=== PATIENT | female | born 1960 | race Caucasian/White ===

== ENCOUNTER 2018-04-11 07:31 | Outpatient (CLI) | payer OTHER ==
--- NOTE | 2018-04-11 14:45 | ULT ---
ULTRASOUND ABDOMEN: Date: 04/11/18 HISTORY: Elevated LFTs. COMPARISON: None. TECHNIQUE: Real-time Saavedra scale with color Doppler and spectral analysis of the abdomen performed. FINDINGS: Visualized portions of the pancreas, aorta, and IVC are unremarkable. Liver measures 13.6 cm in lengt h. Common bile duct appears to be dilated up to 9.0 mm. Portal vein is patent with antegrade flow. Right kidney measures 10.8 x 3.8 x 5.4 cm, without mass, hydronephrosis, or abnormal calcifications. Spleen measures 9.5 cm in length. Left kidney measures 12.2 x 4.8 x 5.3 cm, without mass, hydronephro sis, or abnormal calcifications. Prior cholecystectomy. IMPRESSION: Mild dilatation of the extrahepatic biliary system may be sequelae of reservoir effect. POS: [facility]
== END 2018-04-11 07:32 | disposition home or self-care (01) ==
LOC: NAV ULT 07:31
PROVIDERS: ATTEND Internal Medicine Cardiovascular Disease
DX: K76.0 Fatty (change of) liver, not elsewhere classified (principal); K83.8 Other specified diseases of biliary tract
CPT/HCPCS: 76700

== ENCOUNTER 2018-12-12 07:40 | Outpatient (CLI) | payer OTHER ==
--- NOTE | 2018-12-12 09:44 | ULT ---
ABDOMEN ULTRASOUND: Date: 12/12/18 HISTORY: Status post cholecystectomy. Abdominal pain. Previous history of abnormal LFTs. COMPARISON: 04/11/18. TECHNIQUE: Utilizing a multihertz transducer, sonographic imaging of the abdomen is performed in the longitudina l and transverse plane. FINDINGS: The head and body of the pancreas have a normal echotexture. Remainder of pancreas is obscured by bow el gas. Visualized IVC and aorta have a normal caliber. Hepatic parenchyma has a normal echotexture. No hepatic masses or intrahepatic biliary dilatation. Th e contour of the hepatic margin is maintained. Right hepatic lobe measure 13.3 cm. Gallbladder is surgically absent. Bilaterally, no hydronephrosis. Kidneys have a normal cortical echotexture. Right kidney measures 9.8 x 4.0 x 4.6 cm. Left kidney measures 5.8 x 4.6 x 11.5 cm. Spleen has a normal echotexture, measuring 9.4 cm. Left lower quadrant and right lower quadrant ultrasounds are grossly unremarkable. Common bile duct diameter is 0.9 cm. IMPRESSION: Unremarkable abdomen ultrasound. POS: [facility]
== END 2018-12-12 07:41 | disposition home or self-care (01) ==
LOC: NAV ULT 07:40
PROVIDERS: ATTEND Family Medicine
DX: R10.9 Unspecified abdominal pain (principal)
CPT/HCPCS: 76700